=== PATIENT | male | born 1965 | race Caucasian/White ===

== ENCOUNTER → 2024-06-07 20:06 | Outpatient (REF) | payer OTHER, SELFPAY | LOC: MRI 3T 20:06 | PROVIDERS: ATTENDING PHYSICIAN Internal Medicine Hematology & Oncology; FAMILY PHYSICIAN Family Medicine | DX: C90.00 Multiple myeloma not having achieved remission (principal); R42 Dizziness and giddiness; G90.09 Other idiopathic peripheral autonomic neuropathy; R53.83 Other fatigue; R04.0 Epistaxis; R27.8 Other lack of coordination | CPT/HCPCS: 70553; A9575 ==